=== PATIENT | female | born 1975 | race Caucasian/White ===

== ENCOUNTER 2018-09-07 18:39 | Emergency (ER) | payer BC ==
[2018-09-07] MEDS ORDERED: fentaNYL 100 MCG/2 ML SDV IVPUSH ONE (18:40)
[2018-09-07] MEDS ORDERED: Sodium Chloride 0.9% 1,000 ML IV SCH (18:45)
[2018-09-07 19:09] LABS: CHLORIDE,CL 103 mEq/L (98-106); SODIUM,NA 139 mEq/L (136-145)
[2018-09-07] MEDS ORDERED: Iopamidol 755 Mg/ML 100 ML Bottle IVPUSH ONE (19:16)
--- NOTE | 2018-09-07 19:22 | EDM.PDOC ---
ED HPI GENERAL MEDICAL PROBLEM - General Chief Complaint: Abdominal Pain Stated Complaint: RLQ ABD PAIN Time Seen by Provider: 09/07/18 18:55 Source of Information: Reports: Patient History Limitations: Reports: No Limitations - History of Present Illness INITIAL COMMENTS - FREE TEXT/NARRATIVE: Madison is a 43 yo female who presents to the ED via private vehicle with concerns of right lower abdominal pain. States she started having some discomfort in the RLQ yesterday and it would radiate across her lower abdomen. She admits the pain really never subsided. Did try to get into the clinic today for an appointment but states it was booked. She did schedule an appointment for tomorrow but states she couldn't wait any longer. She noticed she was running a fever. She states she took an ES Tylenol around 1700 hrs today with a [place] as the pain was getting worse. She admits she still has her appendix. States she did have a tubal ligation. Admits she did miss her period around the 1st of this Month but this is normal for her. Onset Date: 09/06/18 Onset Time: 09:00 Duration: Constant, Getting Worse Location: Reports: Abdomen Treatments [facility]: Reports: Acetaminophen, NSAIDS Right Lower Abdomen Pain Score (Numeric/FACES): 7 - Related Data Allergies Allergy/AdvReac Type Severity Reaction Status Date / Time No Known Allergies Allergy Verified 05/28/13 20:39 Home Meds: Home Meds . 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: - Past Surgical History Female Surgical History: Reports: Tubal Ligation, Other (See Below) Other Female Surgeries/Procedures: BLADDER LIFT, UTERINE/RECTAL PROLAPSE REPAIR Social & Family History - Family History Family Medical History: Noncontributory - Tobacco Use Smoking Status *Q: Current Every Day Smoker Years of Tobacco use: 20 Packs/Tins Daily: 1 - Recreational Drug Use Recreational Drug Use: No ED ROS GENERAL - Review of Systems Review Of Systems: See Below Constitutional: Reports: Fever, Decreased Appetite HEENT: Reports: No Symptoms Respiratory: Reports: No Symptoms Cardiovascular: Reports: No Symptoms GI/Abdominal: Reports: Abdominal Pain, Decreased Appetite. Denies: Bloody Stool , Constipation, Diarrhea, Hematochezia, Melena, Nausea, Vomiting : Reports: No Symptoms Musculoskeletal: Denies: Back Pain Skin: Reports: No Symptoms ED EXAM, GI/ABD - Physical Exam Exam: See Below Exam Limited By: No Limitations General Appearance: Alert, Mild Distress Ears: Normal External Exam, Hearing Grossly Normal Nose: Normal Inspection, No Blood Throat/Mouth: Normal Inspection, Normal Lips, Normal Teeth, Normal Oropharynx, Normal Voice, No Airway Compromise Head: Atraumatic, Normocephalic Neck: Normal Inspection, Supple Respiratory/Chest: No Respiratory Distress, Lungs Clear, Normal Breath Sounds, No Accessory Muscle Use Cardiovascular: Normal Peripheral Pulses, No Murmur, Tachycardia GI/Abdominal Exam: No Organomegaly, Guarding, Rebound, Tender (RLQ, positive McBurney's point), Abnormal Bowel Sounds (hypoactive) Back Exam: No: CVA Tenderness (L), CVA Tenderness (R) Extremities: Normal Inspection, No Pedal Edema Neurological: Alert, Oriented, Normal Cognition Psychiatric: Normal Affect, Normal Mood Skin Exam: Normal Color, No Rash, Increased Warmth Course - Vital Signs Last Recorded V/S: Last Vital Signs Temp 101.8 F H 09/07/18 18:40 Pulse 110 H 09/07/18 19:20 Resp 18 09/07/18 18:40 BP 137/95 H 09/07/18 18:40 Pulse Ox 97 09/07/18 18:40 - Orders/Labs/Meds Orders: Active Orders 24 hr Category Date Time Status Abdomen Pelvis w Cont [CT] Routine Exams 09/07/18 Ordered Piperacillin/Tazobactam [Zosyn] 3.375 gm Med 09/07/18 20:30 Ordered Sodium Chloride 0.9% [Normal Saline] 50 ml IV Q6H Sodium Chloride 0.9% [Normal Saline] 1,000 ml Med 09/07/18 18:45 Active IV ASDIRECTED Medication Orders Sodium Chloride (Normal Saline) 1,000 mls @ 250 mls/hr IV ASDIRECTED DENA Last Admin: 09/07/18 18:52 Dose: 250 mls/hr Piperacillin Sod/Tazobactam (Sod 3.375 gm/ Sodium Chloride) 50 mls @ 100 mls/ hr IV Q6H [facility] Labs: Laboratory Tests 09/07/18 09/07/18 09/07/18 Range/Units 07:00 18:50 18:50 WBC 20.1 H* (5.0-10.0) 10^3/uL RBC 5.05 (4.00-5.50) 10^6/uL Hgb 15.9 (12.0-16.0) g/dL Hct 46.8 (37.0-47.0) % MCV 92.7 (82.0-94.0) fL MCH 31.5 (27.0-32.0) pg MCHC 34.0 (33.0-38.0) g/dL RDW Coeff of Blaire 12.9 (11.0-15.0) % Plt Count 192 (150-400) 10^3/uL Neut % (Auto) 88.0 H (35-85) % Lymph % (Auto) 6.2 L (10-55) % [place] % (Auto) 5.2 (0-16) % Eos % (Auto) 0.6 (0-5) % Baso % (Auto) 0 (0-3) % Neut # (Auto) 17.63 H (1.80-7.00) 10^3/uL Lymph # (Auto) 1.24 (1.00-4.80) 10^3/uL [place] # (Auto) 1.05 H (0.00-0.80) 10^3/uL Eos # (Auto) 0.13 (0.00-0.45) 10^3/uL Baso # (Auto) 0.01 10^3/uL Sodium (136-145) mEq/L Potassium (3.5-5.0) mEq/L Chloride (98-106) mEq/L Carbon Dioxide (21-32) mmol/L BUN (7-18) mg/dL Creatinine (0.6-1.0) mg/dL Est Cr Clr Drug Dosing mL/min Estimated GFR (MDRD) (>=60) mL/min Glucose (75-99) mg/dL Calcium (8.4-10.1) mg/dL Total Bilirubin (0.0-1.0) mg/dL AST (15-37) U/L ALT (12-78) U/L Alkaline Phosphatase (46-116) U/L C-Reactive Protein (0.2-0.8) mg/dL Total Protein (6.4-8.2) g/dL Albumin (3.4-5.0) g/dL Urine Color Yellow (YELLOW) Urine Appearance Cloudy (CLEAR) Urine pH 8.5 H (4.5-8.0) Ur Specific [place] 1.015 (1.003-1.020) Urine Protein Negative (NEGATIVE) mg/dL Urine Glucose (UA) Negative (NEGATIVE) mg/dL Urine Ketones Negative (NEGATIVE) mg/dL Urine Occult Blood Small H (NEGATIVE) Urine Nitrite Negative (NEGATIVE) Urine Bilirubin Negative (NEGATIVE) Urine Urobilinogen 0.2 (0.2-1.0) EU/dL Ur Leukocyte Esterase Trace H (NEGATIVE) Urine RBC Not seen (0-5) /HPF Urine WBC 20-30 H (0-5) /HPF Ur Epithelial Cells Many H (NOT SEEN) /HPF Urine Bacteria Moderate H (NOT SEEN) /HPF Urine HCG, Qual Negative 09/07/18 Range/Units 18:50 WBC (5.0-10.0) 10^3/uL RBC (4.00-5.50) 10^6/uL Hgb (12.0-16.0) g/dL Hct (37.0-47.0) % MCV (82.0-94.0) fL MCH (27.0-32.0) pg MCHC (33.0-38.0) g/dL RDW Coeff of Blaire (11.0-15.0) % Plt Count (150-400) 10^3/uL Neut % (Auto) (35-85) % Lymph % (Auto) (10-55) % [place] % (Auto) (0-16) % Eos % (Auto) (0-5) % Baso % (Auto) (0-3) % Neut # (Auto) (1.80-7.00) 10^3/uL Lymph # (Auto) (1.00-4.80) 10^3/uL [place] # (Auto) (0.00-0.80) 10^3/uL Eos # (Auto) (0.00-0.45) 10^3/uL Baso # (Auto) 10^3/uL Sodium 139 (136-145) mEq/L Potassium 4.0 (3.5-5.0) mEq/L Chloride 103 (98-106) mEq/L Carbon Dioxide 26 (21-32) mmol/L BUN 7 (7-18) mg/dL Creatinine 0.8 (0.6-1.0) mg/dL Est Cr Clr Drug Dosing 88.18 mL/min Estimated GFR (MDRD) > 60 (>=60) mL/min Glucose 122 H (75-99) mg/dL Calcium 8.7 (8.4-10.1) mg/dL Total Bilirubin 0.8 (0.0-1.0) mg/dL AST 8 L (15-37) U/L ALT 17 (12-78) U/L Alkaline Phosphatase 70 (46-116) U/L C-Reactive Protein 12.3 H (0.2-0.8) mg/dL Total Protein 7.1 (6.4-8.2) g/dL Albumin 3.5 (3.4-5.0) g/dL Urine Color (YELLOW) Urine Appearance (CLEAR) Urine pH (4.5-8.0) Ur Specific [place] (1.003-1.020) Urine Protein (NEGATIVE) mg/dL Urine Glucose (UA) (NEGATIVE) mg/dL Urine Ketones (NEGATIVE) mg/dL Urine Occult Blood (NEGATIVE) Urine Nitrite (NEGATIVE) Urine Bilirubin (NEGATIVE) Urine Urobilinogen (0.2-1.0) EU/dL Ur Leukocyte Esterase (NEGATIVE) Urine RBC (0-5) /HPF Urine WBC (0-5) /HPF Ur Epithelial Cells (NOT SEEN) /HPF Urine Bacteria (NOT SEEN) /HPF Urine HCG, Qual Meds: Medications Generic Name Dose Route Start Last Admin Trade Name Freq PRN Reason Stop Dose Admin Sodium Chloride 1,000 mls @ 250 mls/hr 09/07/18 18:45 09/07/18 18:52 Normal Saline IV 250 mls/hr ASDIRECTED DENA Administration Piperacillin Sod/Tazobactam 50 mls @ 100 mls/hr 09/07/18 20:30 Sod 3.375 gm/ Sodium Chloride IV Q6H DENA Discontinued Medications Generic Name Dose Route Start Last Admin Trade Name Freq PRN Reason Stop Dose Admin Fentanyl 50 mcg 09/07/18 18:40 Sublimaze IVPUSH 09/07/18 18:41 ONETIME ONE Iopamidol 100 ml 09/07/18 19:16 09/07/18 19:48 Isovue-370 (76%) IVPUSH 09/07/18 19:17 100 ml ONETIME ONE Administration - Re-Assessments/Exams Free Text/Narrative Re-Assessment/Exam: Patient declined Fentanyl, currently rates pain a [address] report did show acute appendicitis. Discussed transfer with Madison and wished to proceed with transfer via private vehicle to [place]. 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 She states her sister is going to give her a ride. Departure - Departure Time of Disposition: 20:30 Disposition: DC/Tfer to [facility] 02 Clinical Impression: Appendicitis, acute Qualifiers: Acute appendicitis type: with localized peritonitis Appendicitis gangrene presence: without gangrene Appendicitis perforation presence: unspecified whether perforation present Appendicitis abscess presence: without abscess Qualified Code(s): K35.30 - Acute appendicitis with localized peritonitis, without perforation or gangrene - Discharge Information Referrals: Tri Garcia PA-C [Primary Care Provider] - Forms: ED Department Discharge Additional Instructions: Directly go to [facility]. Remain NPO en route. No driving will be going by private vehicle as passenger. Risks and benefits have been discussed in regards to transfer via private vehicle. - My Orders Last 24 Hours: My Active Orders 09/07/18 Abdomen Pelvis w Cont [CT] Routine 09/07/18 18:45 Sodium Chloride 0.9% [Normal Saline] 1,000 ml IV ASDIRECTED 09/07/18 20:30 Piperacillin/Tazobactam [Zosyn] 3.375 gm Sodium Chloride 0.9% [Normal Saline] 50 ml IV Q6H - Assessment/Plan Last 24 Hours: My Active Orders 09/07/18 Abdomen Pelvis w Cont [CT] Routine 09/07/18 18:45 Sodium Chloride 0.9% [Normal Saline] 1,000 ml IV ASDIRECTED 09/07/18 20:30 Piperacillin/Tazobactam [Zosyn] 3.375 gm Sodium Chloride 0.9% [Normal Saline] 50 ml IV Q6H Plan: Consultation with general surgeon, Dr. Ricardo Gonzalez, at [facility]. Dr. Gonzalez kindly accepted transfer. Risks and benefits of transfer discussed with patient. Risks of transfer: worsening of condition/pain, MVA, . Benefits of transfer: surgical intervention if needed and improvement of condition. Risks of non-transfer: worsening of condition, no appropriate surgical intervention if needed. Benefits of non-transfer: staying in familiar environment and close to home. Patient verbalized understanding and is in agreement with transfer.
[2018-09-07] MEDS ORDERED: Piperacillin/Tazobactam 3.375 GM in Sodium Chloride 0.9% 50 ML IV SCH (20:30)
== END 2018-09-07 20:55 | disposition critical access hospital (66) ==
LOC: CC.ED 18:39
DX: K35.30 Acute appendicitis with localized peritonitis, without perforation or gangrene (principal); F17.210 Nicotine dependence, cigarettes, uncomplicated; Z98.51 Tubal ligation status
CPT/HCPCS: 36415; 74177; 80053; 81001; 81025; 85025; 86140; 96361; 96365; 99285; J2543; J7030; J7050; Q9967